=== PATIENT | female | born 1970 | race Caucasian/White ===

== ENCOUNTER → 2017-04-08 | Outpatient (CLI) | payer BC, OTHER ==
[2017-04-08 19:20] LABS: ALT/SGPT 23 U/L (12-78); AST/SGOT 16 U/L (15-37); BLOOD UREA NITROGEN 20 mg/dl (7-18); BUN/CREATININE RATIO 33.9 (10-20); CALCIUM 9.1 mg/dl (8.5-10.1); CARBON DIOXIDE 24 mmol/L (21-32); CHLORIDE 106 mmol/L (98-107); CREATININE 0.59 mg/dl (0.60-1.20); GLUCOSE 72 mg/dl (70-99); POTASSIUM 3.9 mmol/L (3.5-5.1); SODIUM 137 mmol/L (136-145)
[2017-04-08 19:30] LABS: ALB/GLOB RATIO 1.2 (0.9-2); ALKALINE PHOSPHATASE 65 U/L (45-117)
== END | disposition home or self-care (01) ==
LOC: C.LABMFLN 16:47
PROVIDERS: ATTEND Family Medicine
DX: E06.3 Autoimmune thyroiditis (principal); M54.5 Low back pain; E78.5 Hyperlipidemia, unspecified; E55.9 Vitamin D deficiency, unspecified

== ENCOUNTER 2025-03-03 11:05 | Observation (INO) ==
--- NOTE | 2025-02-11 14:42 | PAT Medication Instructions ---
Medication Instructions Date of Service February 11, 2025 Home Medications cholecalciferol (vitamin D3) 125 mcg (5,000 unit) tablet (Vitamin D3) 125 mcg PO QAM cyclobenzaprine 5 mg tablet 5 mg PO HS PRN Muscle Spasm multivitamin 1 tab PO QAM omega xl 2 cap PO QAM fexofenadine 180 mg tablet (Merary Allergy) 180 mg PO QAM aspirin 81 mg tablet,delayed release 81 mg PO QAM atorvastatin 80 mg tablet (Lipitor) 80 mg PO QAM escitalopram oxalate 20 mg tablet (Lexapro) 20 mg PO QAM tirzepatide 5 mg/0.5 mL subcutaneous pen injector 5 mg subcut WK STOP taking 2 weeks before surgery (or as soon as possible if surgery is within 2 weeks) omega xl 2 cap PO QAM STOP 7 days prior to surgery tirzepatide 5 mg/0.5 mL subcutaneous pen injector 5 mg subcut WK DO NOT take the morning of surgery cholecalciferol (vitamin D3) 125 mcg (5,000 unit) tablet (Vitamin D3) 125 mcg PO QAM multivitamin 1 tab PO QAM fexofenadine 180 mg tablet (Merary Allergy) 180 mg PO QAM Take morning of surgery With a small sip of water, OTHERWISE NOTHING TO EAT OR DRINK AFTER MIDNIGHT: atorvastatin 80 mg tablet (Lipitor) 80 mg PO QAM escitalopram oxalate 20 mg tablet (Lexapro) 20 mg PO QAM Take evening before surgery cyclobenzaprine 5 mg tablet 5 mg PO HS PRN Muscle Spasm (if needed) Other Notes If you have any questions please call us at [phone] or [phone] or [phone] or [phone]
--- NOTE | 2025-02-17 11:38 | Anesthesiology Consultation ---
Date of Service February 17, 2025 Assessment & Plan (1) Encounter for pre-operative examination: Chart Review Chart Review: Acceptable Risk for Surgery (pending preop labs and final cardio/PCP clearances ) and Patient seen in Pre Admission Testing - Awaiting preop CBC with diff, coags, T&S (patient going to [facility] office for testing 02/18/25 or 02/23/25) - Awaiting final clearances from PCP and cardiology (PCP did message cardio per 02/18/25 workload note for final cardio clearance) Patient scheduled for cardiac cath 02/18/25- patient declined preop testing at time of PAT appt 02/17/25 - she wanted to wait to see if she was getting rescheduled before getting labs. Patient was given PAT preop orders (at this time- she only needs updated CBC with diff, coags, T&S, UA, and albumin)- patient will go to [facility] lab [facility] if cardiac cath is unremarkable. (Surgeon's office made aware) (Cardiac cath 02/18/25 was unremarkable) With left shoulder surgery 05/07/24- patient remembers getting PNB and be taken back to the OR - had trouble moving herself onto the OR table as well as trouble breathing (states she did not communicate this to anyone but this has caused increased anxiety); unsure if SOB related to PNB or midazolam- patient would NOT like pre-medicated prior to going back to the OR - patient encouraged to discuss with anesthesiologist DOS - Patient is NOT an ideal OPJ candidate- currently 23 hour obs Per PAT appt on 02/17/25, no recent illness/disease exposures, illness related symptoms, or recent illness/disease positive tests. Will leave to surgeon's discretion if preop Covid testing needed Cardiology visit 02/04/25= seen for acute follow up on " abnormal myocardial perfusion study... initially referred to cardiology on 12/29/[address] scan suggesting mild calcification involving the RCA... as had dyspnea on exertion progressively worsening over the past 6 months... cheduled to undergo left shoulder surgery with Dr. Vegas on 03/03/2025... Abnormal nuclear stress: Given progressively worsening dyspnea on exertion, abnormal myocardial perfusion study, and risk factors for CAD, recommend definitive evaluation with coronary angiography. Dyspnea on exertion: She appears euvolemic. She has undergone previous CT imaging of the chest in November 2024 suggesting extensive bilateral centrilobular emphysema, which may be contributing to her symptoms... Dyslipidemia- atorvastatin increased to 80mg daily at previous appt... Pericardial effusion- reported on CT imaging but no significant pericardial effusion on ECHO imaging 01/26/25. Upcoming shoulder surgery: If she undergoes PCI or requires further revascularization with CABG, elective surgery should be postponed. If she requires PCI, elective surgery should be postponed until dual antiplatelet therapy can be held which would typically be 6 months following PCI, while continuing onward with aspirin therapy. " PCP office visit 02/01/25= "seen for preoperative physical examination... Abnormal nuclear stress test... awaiting formal recommendations from cardiology... Preoperative general physical examination: Pt will need to have her preoperative testing before I can clear, IF she is cleared first by cardiology. Her Lexiscan stress test appears abnormal. Pt will need to have cardiac follow up and cardiac clearance... Left shoulder arthroscopic SAD, DCE, RCR 05/07/24= Done under GA with Grade 2 view with MAC #3. ETT #7. DL x 1 atraumatic Teaching & Discussion Pre-Anesthesia Teaching/Discussion Notes: Instructed NPO after midnight before surgery,except medications with 15 cc of water. Medication instructions provided according to the PAT guidelines. History Surgery Operation Date: 03/03/25 07:30 Proposed Procedures p Left Shoulder Reverse Total Shoulder Arthroplasty, Debride Suture Anchors and Suture Material - William Vegas MD Height/Weight Height: 5 ft 7 in Weight: 95.8 kg Allergies Allergy/AdvReac Type Severity Reaction Status Date / Time brimonidine Allergy Intermediate Redness, Verified 02/10/25 13:19 Swelling of skin - see note chlorhexidine Allergy Intermediate Rash Verified 02/10/25 13:19 nitrofurantoin AdvReac Mild "really Verified 02/10/25 13:19 tired" Medications Home Medications Medication Instructions Recorded Confirmed Last Taken cholecalciferol (vitamin D3) 125 125 mcg PO QAM 03/04/24 02/10/25 05/06/24 07:00 mcg (5,000 unit) tablet (Vitamin D3) cyclobenzaprine 5 mg tablet 5 mg PO HS PRN Muscle Spasm 03/04/24 02/10/25 Un known multivitamin 1 tab PO QAM 03/04/24 02/10/25 05/06/24 07:00 omega xl 2 cap PO QAM 11/20/24 02/10/25 Unknown fexofenadine 180 mg tablet 180 mg PO QAM 02/01/25 02/10/25 Unknown (Merary Allergy) atorvastatin 80 mg tablet (Lipitor) 80 mg PO QAM 02/10/25 02/10/25 Unknown escitalopram oxalate 20 mg tablet 20 mg PO QAM 02/10/25 02/10/25 Unknown (Lexapro) tirzepatide 5 mg/0.5 mL 5 mg subcut WK 02/10/25 02/10/25 02/10/25 subcutaneous pen injector Past Medical History Medical History Abnormal myocardial perfusion study abnormal test 01/29/25 [facility] [place] [facility] [place] - scheduled for heart cath 02/18/25, aware may need to postpone elective surgery depending on 02/18/25 outcome Adverse effect of anesthesia during 04/[address] [facility], "after they gave me the happy juice and took me to the operating room and was having me move to the table I was h aving difficulty breathing. 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 vomiting after hospital d/c Recurrent UTI - Current UTI- being treated with Keflex x 7 days (started 02/12/25)- symptoms improved Sleep apnea CPAP-compliant Exercise / Class Metabolic Activity II 4-5 Yardwork/Stairs/Walk up hill (one flight of stairs, no chest pain, admits to SOB) Past Family History Family History Sister Hypertension Breast cancer Father Lung cancer Lung disease Aunt Breast cancer Mother Breast cancer Past Surgical History Surgical History History of back surgery x2 - Lumbar - Hardware in place History of hysterectomy "Partial" History of repair of left rotator cuff History of tonsillectomy and adenoidectomy Hx of colonoscopy Status post embolization of uterine artery "Fibroids - that is why they took out my uterus" Past Anesthesia History No Hx of Anesthesia Complications (with exception to SOB and issues with movement with 04/2024 surgery (unsure if related to PNB or midazolam)) and No Family Hx of Anesthesia Complications History of PONV No Hx of Motion Sickness and History of PONV (improved with pre/jane/post operative anti nausea medication ) Social History Smoking Status: Former smoker Do You Dip or Chew Tobacco: No Smoking End Date: 2014 Hx Alcohol Use: No Alcohol type: beer alcohol intake frequency: a few times a month Hx Substance Use: No substance use type: does not use Review of Systems - DENNY- mildly worsening over the past few months- reason for upcoming cardiac cath Patient denies chest pain, shortness of breath at rest, reflux, cough, wheezing, palpitations. No hx of seizures, stroke, PR. No hx of blood clots or blood transfusions Physical Exam Vital Signs VITALS BP 107/72 P 66 TEMP 97.8 SP02 97% RESP 16 Constitutional no acute distress ENMT Mouth: no TMJ clicking Thyromental Distance: > or= 3.5 Finger Breadths (4.0) Mallampati Class: II Neck neck extension not limited Respiratory normal respiratory effort; no respiratory distress Auscultation: lungs clear to auscultation bilaterally; no wheezes Cardiovascular Rate/Rhythm: regular rate and regular rhythm Heart Sounds: no murmur Vessels: no carotid bruit Musculoskeletal Spine: no pain with cervical ROM Extremities: extremities normal to inspection Psychiatric Orientation: alert Lab Results Anesthesia Preop Results Results Anesthesia Widget: Na 137 mmol/L (136-145) 02/04/25 K 4.1 mmol/L (3.5-5.1) 02/04/25 Cl 105 mmol/L (98-107) 02/04/25 CO2 26 mmol/L (21-32) 02/04/25 BUN 19 mg/dl (6-23) 02/04/25 Creat 0.86 mg/dl (0.6-1.2) 02/04/25 Glucose Level 90 mg/dl (70-99(Fasting)) 02/04/25 Testing Electrocardiogram Date: 12/29/24 SB at 53bpm Stress Test Date: 01/29/25 Type: nuclear Myocardial perfusion imaging findings: 1. Raw data analysis demonstrates mild motion artifact, increased GI uptake, and masking difficulty during processing. This is a suboptimal quality study for interpretation. 2. Gated myocardial perfusion imaging demonstrates abnormal septal motion, normal size LV, and normal calculated EF of 56%. 3. There is a small to medium in size, moderate intensity, fixed MPI defect of the mid to distal septum. There is additional mild intensity, medium size reversible defect involving the distal anterior, mid and distal lateral myocardium but sparing the apex. These findings suggest isolated septal infarct. They also suggest ischemia in a large ramus branch versus artifact. 4. Study is limited in quality secondary to artifact and technical issues. There is evidence of both prior infarct and possibly ramus territory ischemia. If clinically appropriate definitive evaluation by coronary angiography should be considered. Cardiac cath scheduled 02/18/25 Stress ECHO Date: 01/26/25 Nondiagnostic exercise stress ECHO for ischemia at 70% MPHR. At 70% MPHR- no EKG or ECHO evidence of stress induced myocardial ischemia. Resting ECHO with normal biventricular systolic function, normal chamber dimensions and no significant valvular abnormalities. No exercise induced chest pain. Normal BP response to exercise There is no pericardial effusion (Had subsequent stress nuclear stress test 01/29/25- see above) Cardiac Catheterization Date: 02/18/25 Coronary angiography: 1. Separate ostium for LAD and circumflex. 2. Left anterior descending: LAD, small to medium caliber D1 and small D2 without significant CAD. 3. Circumflex: Codominant. Circumflex, PL branches, and PDA without significant CAD. Very small caliber OM1, OM 2, and large caliber OM 3. Luminal irregularities within the mid OM 3. 4. Right coronary artery: Codominant. RCA, very small PL branches, and RCA PDA without significant CAD. Impression: 1. No significant CAD. 2. Normal left-sided filling pressure. 3. No aortic stenosis. 4. False positive stress test. Other Testing Chest CT 12/14/24= Negative, benign appearance. Mild calcification right coronary artery with interval worsening. Mild pericardial effusion with interval worsening. No pleural effusions. Large airways are unremarkable. Extensive bilateral centrilobular emphysema re demonstrated.
--- NOTE | 2025-03-01 18:34 | History & Physical Report ---
Date of Service March 01, 2025 Assessment & Plan (1) Rotator cuff tear arthropathy of left shoulder: Plan: Patient has failed rotator cuff repair with pseudoparalysis and pain with [place] stage II rotator cuff arthropathy. At the time of surgery a medialized repair was performed and patient had more osteoarthritis of the glenohumeral joint anticipated. Best option is to proceed with reverse total shoulder replacement at this time. (2) History of failed repair of rotator cuff: History of Present Illness Chief Complaint: Left shoulder pain weakness Primary Care Provider: Vanessa Grande DO 54-year-old female with left shoulder pain and weakness with limited function status post prior scopic rotator cuff repair 04/2024. Patient has a failed repair and rotator cuff arthropathy developing. Patient denies headaches, sweats, fevers, chills, double vision, blurred vision, cough, sore throat, dysphagia, chest pain, sob, wheezing, n/v/d/c, numbness, tingling, fatigue, urinary symptoms. ROS positive for COPD, use of CPAP, anxiety and depression, shortness of breath with activity, arthritis including low back pain, obesity. Allergies Allergy/AdvReac Type Severity Reaction Status Date / Time brimonidine Allergy Intermediate Redness, Verified 02/10/25 13:19 Swelling of skin - see note chlorhexidine Allergy Intermediate Rash Verified 02/10/25 13:19 nitrofurantoin AdvReac Mild "really Verified 02/10/25 13:19 tired" Home Medications Medication Instructions Recorded Confirmed Type cholecalciferol (vitamin D3) 125 125 mcg PO QAM 03/04/24 02/10/25 History mcg (5,000 unit) tablet (Vitamin D3) cyclobenzaprine 5 mg tablet 5 mg PO HS PRN Muscle Spasm 03/04/24 02/10/25 History multivitamin 1 tab PO QAM 03/04/24 02/10/25 History omega xl 2 cap PO QAM 11/20/24 02/10/25 History fexofenadine 180 mg tablet 180 mg PO QAM 02/01/25 02/10/25 History (Merary Allergy) atorvastatin 80 mg tablet (Lipitor) 80 mg PO QAM 02/10/25 02/10/25 History escitalopram oxalate 20 mg tablet 20 mg PO QAM 02/10/25 02/10/25 History (Lexapro) tirzepatide 5 mg/0.5 mL 5 mg subcut WK 02/10/25 02/10/25 History subcutaneous pen injector Past Med/Surg History Problem List (Updated 03/01/25 @ 19:00 by William Vegas MD) History of failed repair of rotator cuff Rotator cuff tear arthropathy of left shoulder Encounter for pre-operative examination Abnormal myocardial perfusion study DENNY (dyspnea on exertion) Rotator cuff tear, left Depression Recurrent UTI Suspected UTI Stress incontinence Hematuria Anxiety (Acute) Mary's thyroiditis (Acute) Hyperlipidemia (Acute) Lumbar canal stenosis (Acute) Lumbar disc disease (Acute) Obesity (Acute) S/P lumbar laminectomy (Acute) S/P lumbar spinal fusion (Acute) Vitamin D deficiency (Acute) Medical History Adverse effect of anesthesia during 04/2024 procedure at [facility], "after they gave me the happy juice and took me to the operating room and was having me move to the table I was having difficulty breathing. It wasn't long after that I was asleep but I would like that medicine once I get into the OR room because it really scared me." Hyperlipidemia DENNY (dyspnea on exertion) [facility] [place] Cardiology - scheduled for heart cath 02/18/25, aware may need to postpone elective surgery depending on 02/18/25 outcome Abnormal myocardial perfusion study abnormal test 01/29/25 [facility] [place] Cardiology - scheduled for heart cath 02/18/25, aware may need to postpone elective surgery depending on 02/18/25 outcome Sleep apnea CPAP-compliant COPD (chronic obstructive pulmonary disease) controlled, stable per pt; denies using inhalers 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 in the past- no longer needs to take per provider per patient Anxiety and depression Recurrent UTI - Current UTI- being treated with Keflex x 7 days (started 02/12/25)- symptoms improved PONV (postoperative nausea and vomiting) does well with IV pre-dosing, does admit after 04/2024 procedure at [facility] vomiting after hospital d/c Surgical History History of repair of left rotator cuff Hx of colonoscopy Status post embolization of uterine artery "Fibroids - that is why they took out my uterus" History of tonsillectomy and adenoidectomy History of back surgery x2 - Lumbar - Hardware in place History of hysterectomy "Partial" Family History Sister Hypertension Breast cancer Father Lung cancer Lung disease Aunt Breast cancer Mother Breast cancer Social History Smoking Status: Former smoker Tobacco Type: Cigarettes Age Started Using Tobacco: 1; Age Quit Using Tobacco: 44; packs per day: 1.5; Smoking End Date: 2014; Second Hand Exposure: No; Do You Dip or Chew Tobacco: No; Tobacco Cessation Education Requested by Patient: No Hx Alcohol Use: No Hx Substance Use: No Preferred Language: Azeri Communication Ability: Effective Visual Impairment: No Limitations Hearing Ability: Normal Roof Truss Detailer Required: No Beliefs That Will Affect Care: None marital status: Current Living Situation: Spouse current occupational status: disabled Other Information That Helps Us Care for You: No Feels Safe at Home: Yes Safety Concerns: Feels Safe At This Time Childhood Exposure to Second-Hand Smoke: No caffeine: Yes (soda) Dental Care, Regularly: Yes Physical Activity Frequency: 5-6 Times per Week Physical Activity Frequency Comment: walking Seatbelt Use: always Sunscreen Use: Yes Assistive Devices: CPAP and Glasses Review of Systems All systems reviewed & are unremarkable except as noted in HPI & below Physical Exam Constitutional: WD/WN, vitals as above Respiratory: normal respiratory effort; no respiratory distress Cardiovascular: Rate/Rhythm: regular rate and regular rhythm Musculoskeletal: Active range of motion 45 degrees active abduction 45 degrees with passive flexion 140 degrees and passive abduction to 90 degrees. Decreased strength with abduction and external rotation and distal neurovascular exam intact. Skin: no rashes, warm and dry Neurologic: normal touch/pain/proprioception Psychiatric: A+Ox3, euthymic affect Results & Data Diagnostic Findings MRI demonstrates failed rotator cuff repair with retracted rotator cuff tissue tear involving supraspinatus and infraspinatus tendons. Soft tissue failure with intact anchors
[~2025-03-03 11:05] MED LIST: BUPIVACAINE 0.5 % 5 MG/1 ML PF 10ML VIAL ONE; MIDAZOLAM HCL 1 MG/ML 2ML VIAL ONE
[2025-03-03] MEDS: LR 15ML/HR IV SCH (11:45)
[2025-03-03] MEDS: LR 60ML/HR IV SCH (11:45)
[2025-03-03] MEDS: GABAPENTIN 600 MG DOSE PO SCH (11:46)
[2025-03-03] MEDS: FAMOTIDINE 20 MG TAB PO SCH (11:46)
[2025-03-03] MEDS: dexAMETHasone**PF** 10 MG/ML VIAL IV SCH (11:46)
[2025-03-03] MEDS: ACETAMINOPHEN 500 MG TAB PO SCH ×2 (11:46→21:53)
[2025-03-03] MEDS: METOCLOPRAMIDE HCL 10 MG TABLET PO SCH (11:47)
[2025-03-03] MEDS ORDERED: PROPOFOL IV EMULSION 10 MG/ML 20 ML VIAL IV ONE (12:06)
[2025-03-03] MEDS ORDERED: DEXAMETHASONE SOD INJ 4 MG/ML VIAL ONE (12:06)
[2025-03-03] MEDS ORDERED: ONDANSETRON INJ 2 MG/ML 2 ML VIAL ONE (12:06)
[2025-03-03] MEDS ORDERED: ROCURONIUM BROMIDE 10 MG/ML 5 ML VIAL IV ONE ×2 (12:06→16:09)
[2025-03-03] MEDS ORDERED: LIDOCAINE 2% 2 ML VIAL/AMP(20MG/ML) INFIL ONE (12:06)
[2025-03-03] MEDS: TRANEXAMIC ACID 1,000 MG **IV Pre-op IV SCH (13:31)
--- NOTE | 2025-03-03 13:46 | History & Physical Bridge Note ---
Date of Service March 03, 2025 History & Physical Bridge Note I have examined the patient, reviewed the History & Physical and in the interval since the performance of the History & Physical I have noted the following changes of clinical significance: no changes noted
[2025-03-03] MEDS ORDERED: PHENYLEPHRINE HCL 10 MG/ML VIAL ONE (16:09)
[2025-03-03] MEDS ORDERED: diphenhydrAMINE 50 MG/ML VIAL ONE (16:09)
[2025-03-03] MEDS ORDERED: SUGAMMADEX SODIUM 200 MG/2 ML VIAL IV ONE (16:10)
--- NOTE | 2025-03-03 16:42 | Operative Report ---
Post Operative Report Pre & Post Diagnosis Operation Date: 03/03/25 12:55 Pre-Op Diagnosis: Left Shoulder Rotator cuff tear arthropathy, Failed Rotator Cuff Repair Post-Op Diagnosis: Left Shoulder Rotator cuff tear arthropathy, Failed Rotator Cuff Repair I identified the patient and participated in the time-out.: Yes Procedure Operation Date: 03/03/25 12:55 Actual Procedures p Left Reverse Total Shoulder Arthroplasty, excisional debridement of Suture Anchors and Suture Material(Left) - William Vegas MD Surgeon William Vegas MD Face Boss Sin HARRY Estimated Blood Loss 75 Findings Consistent with Post-Op Diagnosis Specimens Humeral head Drains 2 Hemovac Anesthesia Type General Regional Complications none Disposition Disposition: Recovery Room Indications 54-year-old female with history of rotator cuff repair of massive rotator cuff tear April 2024 which went on to fail over time and she has developed progressive rotator cuff arthropathy and she has essentially pseudoparalysis. Deltoid functional with posting her arm overhead. Description of Procedure The patient was taken to the operating room and anesthetized under regional block and general anesthetic. The patient was positioned on the operating table in a 30 beach chair position with a towel roll under the medial border of the left scapula. The arm was draped free to be able to manipulate the shoulder as needed. The left upper extremity was prepped and draped in usual sterile fashion. Exam demonstrated moderate obesity forward flexion around 150 degrees and abduction less than 90 degrees with external rotation to 70 degrees. Subacromial crepitation. Old benign arthroscopic scars. An anterior deltopectoral approach was performed. A longitudinal incision was made in the deltopectoral interval. The skin was incised sharply. Subcutaneous flaps were elevated off the fascia. The cephalic vein was dissected out and retracted medially with the pectoralis major. The clavipectoral fascia was divided at the lateral margin of the conjoined tendon and extended up to the CA ligament. The following findings were noted: There was chronic bursitis over the subscapularis which was intact. The biceps tendon was absent. The supraspinatus tendon was torn and retracted medially and some of the anterior infraspinatus tendon was torn but a good portion of the infraspinatus repair was still intact as well as the teres minor posteriorly. The superior head however was eburnated bone consistent with [id number] in the subacromial space. There were minor inferior humeral osteophytes only no anchors were noted to be loose. There were some loops of suture that were still intact from the prior repair which were not within the tendon any longer consistent with a soft tissue failure of the repair.. The upper centimeter of the pectoralis was released for inferior exposure. A self-retaining retractor was placed. The biceps tendon findings demonstrated[]. The subscapular muscle fibers were split longitudinally at the level of the circumflex vessels. The circumflex vessels were identified and tied off with silk ties and divided laterally. A Kitner elevator was used to free up the inferior fibers of the subscapularis off of the capsule. The axillary nerve was identified with a tug test and protected with a blunt Ryan retractor between the nerve and the capsule. The subscapularis tendon was then taken down off of the lesser tuberosity subperiosteally, a Vicryl traction suture was placed and a subperiosteal dissection was performed along the neck of the humerus as the arm was gradually externally rotated exposing the humeral head. retractors were readjusted and the small inferior osteophytes were all resected using a small rongeur. A Figueroa elevator was used to assist in releasing the capsule of the neck of the humerus. The capsule was divided under direct visualization with Laird scissors down to the glenoid released off the anterior glenoid and the rotator interval was released to meet the capsular release and a 360 release of the subscapularis was accomplished. A Fukuda retractor was placed into the joint retracting the humeral head posterior. Glenoid findings demonstrated severe arthritic changes with the inferior two thirds of the glenoid having just fibrocartilage over exposed bone. The labrum was resected. an anterior- inferior and posterior inferior capsular release were performed with electrocautery and a Figueroa elevator on bone with the axillary nerve protected inferiorly by the retractor. Attention was then taken to the humeral preparation. The cutting guide was placed into the humeral head. It was positioned at 20 of retroversion. Oscillating saw was used to resect the humeral head giving the cut above the level of the posterior rotator cuff insertion site. Bone quality was excellent. Will the humerus was then prepared for the stem. I used the ascend flex stem from [employer]. The sizing broaches were used followed by trial broaches up to a size 3B long which had the appropriate fit and fill. In order to be able to broach the humerus multiple anchors first had to be removed including peek Helicoil and peek footprint anchors as well as suture material. These were all excisionally debrided in order to be able to instrument the metaphysis of the humerus. The appropriate sized cut protector was then placed. The humerus was then retracted posterior to the glenoid. The glenoid was sized for a 25 mm standard post baseplate. The guide for the baseplate was positioned in a 10 inferior tilt and the central drill hole was made. The reamer for the 25 mm standard post baseplate was used. The central drill was widened for the peg. The aequalis hydroxyapatite coated standard post 25 mm baseplate was impacted into position. There was a solid press-fit. The bone quality was good. The base plate was transfixed with superior and inferior locking screws and anterior and posterior compression screws with stable fixation. The fan reamer was used for the 36 millimeter glenoid sphere. After irrigation the [employer]ier aequalis 36 mm standard glenoid sphere was impacted onto the baseplate and the security screw was tightened. Attention was taken back to the humerus. The cut protector was removed and the +0 high offset humeral tray trial was assembled to the trial stem rotated appropriately to get bony coverage and then screwed in position. A trial reduction was performed. A +6/36 mm reversed flex trial insert demonstrated good stability and no shuck. The trials were removed. 3 drill holes are made into the harder bone in the bicipital groove area and 3 #5 FiberWire sutures were placed transosseously. The canal was irrigated with pulsatile saline solution. The final component was assembled. The final component was [employer] ascend flex 3B long stem assembled to +0 high offset tray with a +6/36 mm reverse flex polyethylene insert. This was then impacted into the humerus with a tight press-fit. It was reduced to the glenoid sphere. Stability was verified. Subscapularis was repaired with the #5 FiberWire sutures using Iván-Jevon suture technique. Lateral row soft tissue repair was performed with #2 FiberWire [id number] sutures. The pectoralis was repaired with #2 FiberWire [id number] sutures r. The arm was taken through a range of motion which demonstrated 140 degrees forward flexion 90 degrees abduction and 45 degrees external rotation without any tension on repair.. The implant was stable through the range of motion tested. The wound was copiously irrigated. 2 Hemovac drains were placed. The deltopectoral interval was closed with [id number] #1 Vicryl sutures. The subcutaneous tissues were closed with 2- 0 Vicryl sutures. The skin was closed with surgical katty. A Silverlon sterile dressing was applied and a shoulder immobilizer. PIERO Galeas my physician assistant professor of biochemistry acted as first cook throughout the procedure .He performed functions including patient positioning, arm positioning, prepping and draping, soft tissue retraction, instrument management, suture management and performed the subcutaneous and skin closure and will participate in the postoperative care of the patient. I attest to the content of the Intraoperative Record and any orders documented therein. Any exceptions are noted below.
--- NOTE | 2025-03-03 17:32 | Anesthesiology Progress Note ---
Date of Service March 03, 2025 Anesthesia Post Procedure Vital Signs Vital Signs: Temp Pulse Resp BP Pulse Ox O2 Del Method O2 Flow Rate 03/03/25 17:25 67 14 101/65 96 Room Air 03/03/25 17:15 63 15 103/68 96 Oxymask 3 03/03/25 17:05 61 15 119/72 95 Oxymask 4 03/03/25 16:55 70 20 110/78 97 Oxymask 6 03/03/25 16:45 36.4 C L 83 15 118/58 L 96 Oxymask 8 03/03/25 11:36 36.8 C 60 20 137/85 97 Room Air Pain Intensity Left Medial Axilla: Pain Intensity: 4 Transfer of Care Handoff Completed per policy Notes Mental Status: alert / awake / arousable Patient Amnestic to Procedure: Yes Nausea / Vomiting: adequately controlled Pain: adequately controlled Airway Patency, RR, SpO2: stable & adequate BP & HR: stable & adequate Hydration State: stable & adequate Anesthetic Complications: no major complications apparent
--- NOTE | 2025-03-03 18:10 | XRay Report ---
2 views of the left shoulder are submitted for review. Findings: No definite fracture is seen. There is a left glenohumeral arthroplasty and expected position. There are surgical skin katty as well as a surgical drain. No other osseous abnormality is identified. There are no radiopaque foreign bodies. Impression: Left shoulder replacement Electronically signed by Vinnie Raza 03-03-2025 6:05 PM
[2025-03-03] MEDS ORDERED: MAGNESIUM HYDROXIDE SUSP 30 ML UDC PO PRN (18:42)
[2025-03-03] MEDS ORDERED: KETOROLAC TROMETHAMINE 15 MG/ML VIAL IV PRN (18:42)
[2025-03-03] MEDS ORDERED: CYCLOBENZAPRINE HCL 5 MG TAB PO PRN (18:42)
[2025-03-03] MEDS ORDERED: NALOXONE HCL 0.4 MG/1 ML VIAL/CARP IV PRN (18:42)
[2025-03-03] MEDS ORDERED: ALUMINUM/MAGNESIUM SUSP 30 ML UDC PO PRN (18:42)
[2025-03-03] MEDS ORDERED: ONDANSETRON INJ 2 MG/ML 2 ML VIAL IV PRN (18:42)
[2025-03-03] MEDS ORDERED: METOCLOPRAMIDE HCL INJ 5 MG/ML 2 ML VIAL IV PRN (18:42)
[2025-03-03] MEDS ORDERED: diphenhydrAMINE Capsule 25 MG CAP PO PRN (18:42)
[2025-03-03] MEDS ORDERED: HYDROmorphone INJ 0.5 MG/0.5 ML SYR IV PRN (18:42)
[2025-03-03] MEDS: BUPIVACAINE LIPOSOME 1.3% 133 MG/10 ML VIAL ONE (19:05)
[2025-03-03] MEDS: FAMOTIDINE/PF 20 MG/2 ML VIAL IV ONE (19:05)
[2025-03-03] MEDS: SODIUM CHLORIDE 0.9% 1,000 ML IV SCH (19:34)
--- NOTE | 2025-03-03 20:11 | Anesthesiology Progress Note ---
Date of Service March 03, 2025 Anesthesia Post Procedure Vital Signs Vital Signs: Temp Pulse Pulse Resp BP Pulse Ox O2 Del Method 03/03/25 19:35 36.8 C 69 18 101/68 94 Nasal Cannula 03/03/25 19:02 36.8 C 67 18 108/74 94 Nasal Cannula 03/03/25 18:42 37.5 C 68 16 97/66 L 94 Nasal Cannula 03/03/25 18:05 71 15 106/80 97 Nasal Cannula 03/03/25 17:50 67 13 107/77 95 Nasal Cannula 03/03/25 17:35 37.2 C 74 14 106/68 94 Nasal Cannula 03/03/25 17:25 67 14 101/65 96 Room Air 03/03/25 17:15 63 15 103/68 96 Oxymask 03/03/25 17:05 61 15 119/72 95 Oxymask 03/03/25 16:55 70 20 110/78 97 Oxymask 03/03/25 16:45 36.4 C L 83 15 118/58 L 96 Oxymask 03/03/25 11:36 36.8 C 60 20 137/85 97 Room Air O2 Flow Rate 03/03/25 19:35 2 03/03/25 19:02 2 03/03/25 18:42 2 03/03/25 18:05 2 03/03/25 17:50 2 03/03/25 17:35 2 03/03/25 17:25 03/03/25 17:15 3 03/03/25 17:05 4 03/03/25 16:55 6 03/03/25 16:45 8 03/03/25 11:36 Pain Intensity Left Medial Axilla: Pain Intensity: 4 Transfer of Care Handoff Completed per policy Notes Mental Status: alert / awake / arousable Patient Amnestic to Procedure: Yes Nausea / Vomiting: adequately controlled Pain: adequately controlled Airway Patency, RR, SpO2: stable & adequate BP & HR: stable & adequate Hydration State: stable & adequate Anesthetic Complications: no major complications apparent
[2025-03-03] MEDS: ASPIRIN 81 MG ECTAB PO SCH (21:54)
[2025-03-03] MEDS: SENNA 8.6 MG TAB PO SCH (21:54)
[2025-03-03] MEDS: DOCUSATE SODIUM 100 MG CAP PO SCH (21:54)
[2025-03-03] MEDS: TRANEXAMIC ACID / 0.7% NACL 1,000 MG/100 ML BAG IV SCH (22:04)
[2025-03-04 07:36] LABS: Hematocrit (blood only) 35.5 % (37.0-47.0); Hemoglobin 12.0 g/dl (12.0-16.0); Immature Granulocytes # (auto) 0.06 K/uL (0.01-0.20); Immature Granulocytes % (auto) 0.6 %; Mean Corpuscular Hemoglobin 30.9 pg (25.0-34.0); Mean Corpuscular Volume 91.5 fL (80.0-100.0); Platelet Count 203 K/uL (130-400); RDW Standard Deviation 44.1 fL (36.4-46.3); Red Blood Count 3.88 M/uL (4.20-5.40); White Blood Count 10.12 K/ul (4.8-10.8)
[2025-03-04 07:52] VITALS: BP 118/80; TEMP 98.6; O2SAT 93
[2025-03-04 07:52] LABS: Anion Gap 7.0 (3-11); Blood Urea Nitrogen 14.0 mg/dl (6-23); Calcium 8.4 mg/dl (8.6-10.3); Carbon Dioxide 24.0 mmol/L (21-32); Chloride 109.0 mmol/L (98-107); Creatinine Clr Calc Pharmacy 116.6 ml/min; Glucose 114.0 mg/dl (70-99(Fasting)); Potassium 3.8 mmol/L (3.5-5.1); Sodium 140.0 mmol/L (136-145)
--- NOTE | 2025-03-04 07:52 | Orthopedic Progress Note ---
Date of Service March 04, 2025 Assessment & Plan (1) Rotator cuff tear arthropathy of left shoulder: Plan: Postop day 1 reverse total shoulder arthroplasty. It was noted that she was [id number] in the subacromial space so had [place] 3 arthritis and glenoid was grade 4 as well. Patient doing satisfactory. Patient's drain can be discontinued and after instructed in home exercises can be discharged today. She is will arrange outpatient physical therapy. Follow-up in 2 weeks for staple removal. Typical Silverlon instructions for wound management Patient has failed rotator cuff repair with pseudoparalysis and pain with Ham[place] stage II rotator cuff arthropathy. At the time of surgery a medialized repair was performed and patient had more osteoarthritis of the glenohumeral joint anticipated. Best option is to proceed with reverse total shoulder replacement at this time. (2) History of failed repair of rotator cuff: Admission and Anticipated Discharge Date Admission Date: March 03, 2025 Subjective Doing well no pain so far Review of Systems Review of Systems: No chest pain shortness of breath feels well Physical Exam Musculoskeletal: Dressing dry and intact, sling intact. Motor function of hand returned to normal some numbness from block. No pain so far. Circulation intact. Results & Data Vital Signs (Past 12 Hours) Vital Signs Temp Pulse Resp BP Pulse Ox O2 Del Method O2 Flow Rate 03/04/25 04:02 36.8 C 60 16 103/68 94 Room Air 03/04/25 01:01 36.7 C 66 16 101/66 94 Nasal Cannula 2 03/03/25 21:32 36.7 C 75 18 117/77 94 Nasal Cannula 2 03/03/25 20:36 36.9 C 71 18 104/69 94 Nasal Cannula 2 Diagnostic Findings Satisfactory aligned reverse total shoulder arthroplasty left shoulder
[2025-03-04] MEDS: dexAMETHasone 10 MG in SYRINGE 0 ML IV SCH (08:37)
[2025-03-04] MEDS: ESCITALOPRAM OXALATE 20 MG TAB PO SCH (08:38)
[2025-03-04] MEDS: ATORVASTATIN 40 MG TAB PO SCH (08:38)
[2025-03-04] MEDS: FEXOFENADINE HCL 180 MG TAB PO SCH (08:38)
[2025-03-04] MEDS: CHOLECALCIFEROL 125 MCG (5,000 UNITS) TAB PO SCH (08:38)
[2025-03-04] MEDS: MULTIVITAMIN TAB PO SCH (08:38)
[2025-03-04 09:46] VITALS: RESP 14
[2025-03-04 11:37] VITALS: PULSE 71
== END 2025-03-04 12:25 | disposition home health service (06) ==
LOC: 3N 11:05 → ASU 11:05